=== PATIENT | female | born 1955 | race Caucasian/White ===

== ENCOUNTER 2016-10-14 14:28 | Emergency (ER) | payer OTHER ==
[2016-10-14] MEDS ORDERED: SODIUM CHLORIDE 1,000 ML IV STA (14:55)
[2016-10-14] MEDS ORDERED: ONDANSETRON 4 MG/2 ML VIAL IVPB ONE (14:55)
--- NOTE | 2016-10-14 15:00 | PDOC ---
History of Present Illness - General History Source: Patient, Significant Other Exam Limitations: No Limitations - History of Present Illness Initial Comments: 10/14/16 15:22 60-year-old female no past medical history presents to the emergency department for syncope. The patient was out with her family and was at an outdoor green party. She had drank 3 glasses of sangria and smoked marijuana. Patient became disoriented and lightheaded. Soon had a brief syncopal episode but denies trauma. Patient denies chest pain short of breath but reports feeling nauseous and somewhat intoxicated. Came into the ED for further evaluation. <Cyndy Scott - Last Filed: 10/14/16 15:26> - General History Source: Patient Exam Limitations: No Limitations <jS Chung - Last Filed: 10/14/16 16:44> - General Chief Complaint: Nausea Stated Complaint: NAUSEA Time Seen by Provider: 10/14/16 14:50 Past History <Cyndy Scott - Last Filed: 10/14/16 15:26> - Past Medical History Thyroid Disease: No - Psycho/Social/Smoking Cessation Hx Anxiety: No Suicidal Ideation: No Smoking History: Current every day smoker Have you smoked in the past 12 months: Yes Number of Cigarettes Smoked Daily: 20 Information on smoking cessation initiated: No Hx Alcohol Use: Yes (occasional) Drug/Substance Use Hx: Yes (once in a while marijuana) Substance Use Type: None <Sj Chung - Last Filed: 10/14/16 16:44> - Past Medical History Allergies/Adverse Reactions: Allergies Allergy/AdvReac Type Severity Reaction Status Date / Time No Known Allergies Allergy Verified 10/14/16 14:55 Home Medications: Ambulatory Orders NK [No Known Home Medication] 10/14/16 Review of Systems - Review of Systems Able to Perform ROS?: Yes Comments:: 10/14/16 15:22 GENERAL/CONSTITUTIONAL: No fever or chills. No weakness. HEAD, EYES, EARS, NOSE AND THROAT: No change in vision. No ear pain or discharge. No sore throat. CARDIOVASCULAR: No chest pain or shortness of breath. RESPIRATORY: No cough, wheezing, or hemoptysis. GASTROINTESTINAL: No nausea, vomiting, diarrhea or constipation. GENITOURINARY: No dysuria, frequency, or change in urination. MUSCULOSKELETAL: No joint or muscle swelling or pain. No neck or back pain. SKIN: No rash NEUROLOGIC: No headache, vertigo, loss of consciousness, or change in strength/ sensation. ENDOCRINE: No increased thirst. No abnormal weight change. HEMATOLOGIC/LYMPHATIC: No anemia, easy bleeding, or history of blood clots. ALLERGIC/IMMUNOLOGIC: No hives or skin allergy. <Cyndy Scott - Last Filed: 10/14/16 15:26> *Physical Exam - Vital Signs Last Vital Signs Temp Pulse Resp BP Pulse Ox 97.2 F L 88 18 109/74 100 10/14/16 14:30 10/14/16 14:30 10/14/16 14:30 10/14/16 14:30 10/14/16 14:30 - Physical Exam Comments: 10/14/16 15:23 GENERAL: Awake, alert, and fully oriented, in no acute distress. + Mildly toxic appearing. HEAD: No signs of trauma EYES: PERRLA, EOMI, sclera anicteric, conjunctiva clear ENT: Auricles normal inspection, hearing grossly normal, nares patent, oropharynx clear without exudates. + Dry mucous membranes NECK: Normal ROM, supple, no lymphadenopathy, JVD, or masses LUNGS: Breath sounds equal, clear to auscultation bilaterally. No wheezes, and no crackles HEART: Regular rate and rhythm, normal S1 and S2, no murmurs, rubs or gallops ABDOMEN: Soft, nontender, normoactive bowel sounds. No guarding, no rebound. No masses EXTREMITIES: Normal range of motion, no edema. No clubbing or cyanosis. No cords, erythema, or tenderness NEUROLOGICAL: Cranial nerves II through XII grossly intact. Normal speech, normal gait SKIN: Warm, Dry, normal turgor, no rashes or lesions noted. <Cyndy Scott - Last Filed: 10/14/16 15:26> - Vital Signs Last Vital Signs Temp Pulse Resp BP Pulse Ox 97.2 F L 88 18 109/74 100 10/14/16 14:30 10/14/16 14:30 10/14/16 14:30 10/14/16 14:30 10/14/16 14:30 <Sj Chung - Last Filed: 10/14/16 16:44> Heart Score/ECG Review #1 ECG reviewed & interpreted by me at: 15:00 10/14/16 15:01 NSR 76, Q wave V1-V2, no std/carmon, normal axis, normal intervals, QTC 447 msec. no brugada, no hocm, no WPW <Sj Chung - Last Filed: 10/14/16 16:44> ED Treatment Course - LABORATORY CBC & Chemistry Diagram: 10/14/16 15:30 10/14/16 15:30 <Sj Chung - Last Filed: 10/14/16 16:44> Medical Decision Making - Medical Decision Making 10/14/16 14:58 A portion of this note was documented by scribe services under my direction. I have reviewed the details of the note, within reason, and agree with the documentation with the following case summary and management plan written by me. Patient treated in the ED. Nursing notes are reviewed and incorporated into the medical decision-making. Vital signs reviewed. Peripheral IV access obtained by the nurse, laboratory studies are drawn and sent, reviewed and interpreted by myself. Vital Signs Temp Pulse Resp BP Pulse Ox 97.2 F L 88 18 109/74 100 10/14/16 14:30 10/14/16 14:30 10/14/16 14:30 10/14/16 14:30 10/14/16 14:30 60-year-old female no past medical history presents to the emergency department for syncope. The patient was out with her family and was at an outdoor green party. She had drank 3 glasses of sangria and smoked marijuana. Patient became disoriented and lightheaded. Soon had a brief syncopal episode but denies trauma. Patient denies chest pain short of breath but reports feeling nauseous and somewhat intoxicated. Came into the ED for further evaluation. I suspect the patient's syncope is vasovagal. This is also in the setting of her with some alcohol and likely marijuana intoxication. We have IV fluids and Zofran and reassess. If workup is negative, patient be discharged with PMD follow-up. 10/14/16 16:42 CBC, BMP 10/14/16 15:30 10/14/16 15:30 CMP Sodium 142 mmol/L (136-145) 10/14/16 15:30 Potassium 3.6 mmol/L (3.5-5.1) 10/14/16 15:30 Chloride 105 mmol/L (98-107) 10/14/16 15:30 Carbon Dioxide 28 mmol/L (21-32) 10/14/16 15:30 Anion Gap 9 (8-16) 10/14/16 15:30 BUN 12 mg/dL (7-18) 10/14/16 15:30 Creatinine 1.0 mg/dL (0.55-1.02) 10/14/16 15:30 Creat Clearance w eGFR 56.37 (>60) 10/14/16 15:30 Random Glucose 90 mg/dL (74-106) 10/14/16 15:30 Calcium 8.8 mg/dL (8.5-10.1) 10/14/16 15:30 Total Bilirubin 0.4 mg/dL (0.2-1.0) 10/14/16 15:30 AST 14 U/L (15-37) L 10/14/16 15:30 ALT 15 U/L (12-78) 10/14/16 15:30 Alkaline Phosphatase 76 U/L (45-117) 10/14/16 15:30 Creatine Kinase 55 IU/L (26-192) 10/14/16 15:30 Troponin I < 0.02 ng/ml (0.00-0.05) 10/14/16 15:30 Total Protein 5.8 g/dl (6.4-8.2) L 10/14/16 15:30 Albumin 3.5 g/dl (3.4-5.0) 10/14/16 15:30 I instructed the patient to take a copy of the ECG and blood work to her doctor. Pt is stable. Pt's will take patient home. I discussed the physical exam findings, ancillary test results and final diagnoses with the patient. I answered all of the patient's questions. The patient was satisfied with the care received and felt comfortable with the discharge plan and treatment plan. The patient will call their primary care physician within 24 hours to arrange follow-up and will return to the Emergency Department with any new, persistant or worsening symptoms. <Sj Chung - Last Filed: 10/14/16 16:44> *DC/Admit/Observation/Transfer - Attestations Scribe Attestion: 10/14/16 15:23 Documentation prepared by Cyndy Scott, acting as medical director/head team physician for Sj Chung MD <Cyndy Scott - Last Filed: 10/14/16 15:26> - Discharge Dispostion Admit: No <Sj Chung - Last Filed: 10/14/16 16:44> Diagnosis at time of Disposition: Drug use - Discharge Dispostion Disposition: HOME Condition at time of disposition: Improved - Referrals Referrals: aDllin Redd MD [Primary Care Provider] - - Patient Instructions Additional Instructions: Please bring your ECG and blood work to your doctor. Drink plenty of fluids and rest. Follow up with your doctor.
[2016-10-14] MEDS ORDERED: ONDANSETRON 4 MG/2 ML VIAL ONE (15:15)
[2016-10-14 15:25] VITALS: TEMP 97.2; BMI 23.4
[2016-10-14 15:36] LABS: BASOPHIL 0.8 % (0-2.0); EOSINOPHIL 1.3 % (0-4.5); MCH 30.2 pg (25.7-33.7); MCHC 32.9 g/dl (32.0-36.0); MEAN CELL VOLUME 91.9 fl (80-96); MEAN PLT VOLUME 9.2 fl (7.5-11.1); NEUTROPHILS 68.4 % (42.8-82.8); PLATELET COUNT 213 K/MM3 (134-434); RDW 14.9 % (11.6-15.6); WHITE BLOOD COUNT 10.7 K/mm3 (4.0-10.0)
[2016-10-14 16:02] LABS: ALBUMIN 3.5 g/dl (3.4-5.0); ANION GAP 9 (8-16); BILIRUBIN,TOTAL 0.4 mg/dL (0.2-1.0); CALCIUM 8.8 mg/dL (8.5-10.1); CO2 28 mmol/L (21-32); GLUCOSE,RANDOM 90 mg/dL (74-106); SGOT/AST 14 U/L (15-37); SGPT/ALT 15 U/L (12-78); TOT PROT 5.8 g/dl (6.4-8.2)
[2016-10-14 16:04] LABS: ALK PHOS 76 U/L (45-117); CPK 55 IU/L (26-192); TROPONIN I < 0.02 ng/ml (0.00-0.05)
[2016-10-14 16:12] VITALS: BP 120/76; PULSE 85
--- NOTE | 2016-10-15 17:51 | EKG ---
Test Reason : Blood Pressure : / mmHG Vent. Rate : 076 BPM Atrial Rate : 076 BPM P-R Int : 148 ms QRS Dur : 072 ms QT Int : 398 ms P-R-T Axes : 053 036 048 degrees QTc Int : 447 ms NORMAL SINUS RHYTHM POSSIBLE LEFT ATRIAL ENLARGEMENT FACTORS CANNOT EXCLUDE ANTEROSEPTAL INFARCT OF INDETERMINATE AGE NO PREVIOUS ECGS AVAILABLE FOR COMPARSION CLINICAL CORRELATION IS RECOMMENDED Confirmed by ELIZABETH CALVILLO MD ([id number]) on 10/15/2016 5:50:48 PM Referred By: Confirmed By:ELIZABETH CALVILLO MD
== END 2016-10-14 17:17 | disposition home or self-care (01) ==
LOC: JER 14:28
PROC: 3E033GC Introduction of Other Therapeutic Substance into Peripheral Vein, Percutaneous Approach (ICD-10-PCS; principal; 2016-10-14)
DX: F12.10 Cannabis abuse, uncomplicated (principal); F10.10 Alcohol abuse, uncomplicated; Y90.0 Blood alcohol level of less than 20 mg/100 ml
CPT/HCPCS: 80053; 80307; 84484; 85025; 93005; 93010; 99284-25